=== PATIENT | male | born 1995 | race Hispanic/Latino ===

== ENCOUNTER 2021-08-21 18:14 | Emergency (ER) | payer OTHER, SELFPAY ==
[2021-08-21 18:25] VITALS: BP 146/84; PULSE 67; RESP 18; TEMP 36.1; O2SAT 100
--- NOTE | 2021-08-21 18:38 | ED.SKABFB ---
HPI - Skin/Abscess/Foreign Bdy General Chief complaint: Extremity Injury, Upper Stated complaint: Finger Pain Time Seen by Provider: 08/21/21 18:34 Source: patient and RN notes reviewed Mode of arrival: ambulatory Limitations: no limitations History of Present Illness HPI narrative: 25-year-old male presents to the [facility] with right pointer finger with redness around the nail. No fluctuant area. Area is mildly swollen, tender to touch with erythema and warm. States he was poked underneath the nail while doing the dishes last night. Patient also bites his nails Full range of motion noted. Capillary refill under 2 seconds Related Data Allergies Allergy/AdvReac Type Severity Reaction Status Date / Time No Known Allergies Allergy Unverified 08/21/21 18:22 Review of Systems Review of Systems: All systems reviewed & are unremarkable except as noted in HPI and below Constitutional: Constitutional: Reports no additional constitutional complaints Eyes: Eyes: Reports no additional eye complaints ENT: Reports system reviewed and no additional complaints, except as documented Cardiovascular: Cardiovascular: Reports no additional cardiovascular complaints Respiratory: Respiratory: Reports no additional respiratory complaints Integumentary/Breasts: Skin/Breast: Reports as per HPI and Reports erythema (Tip of right pointer finger without fluctuance) Neurologic: Reports system reviewed and no additional complaints, except as documented Psychiatric: Psychiatric: Reports no additional psychiatric complaints Allergic/Immunologic: Allergic/Immunologic: Reports no additional allergic/immunologic complaints PMFSH Past Medical History Medical History (Updated 08/21/21 @ 18:43 by Maryann Keen) No significant medical problems Surgical History Surgical History (Updated 08/21/21 @ 18:40 by Maryann Keen) No significant past surgical history Social History Social History (Updated 08/21/21 @ 18:40 by Maryann Keen) 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 There is no relevant family history pertinent to the patient complaint. Exam Const: General: healthy appearing, no acute distress and alert Nutritional Appearance: well nourished Orientation/consciousness: patient oriented x3 Limitations: no limitations HENMT: Head: normal to inspection Eyes: Pupils: Equal, round and reactive pupils present Neck: Neck: normal visual inspection and no lymphadenopathy Chest: Chest palpation & inspection: normal inspection of the chest Resp: Effort & Inspection: normal respiratory effort Cardio: Rate: regular rate Skin: Other: Redness around the nail right pointer finger. No fluctuance. Increased warmth. Capillary refill under 2 seconds. Neuro: General: patient oriented x3, moves all extremities, no meningeal signs and no focal motor deficits Speech: normal speech Gait exam (Neuro): Normal gait present Extrem: General: normal to inspection Psych: Appearance: grossly normal and well kempt Mental Status: mental status grossly normal Affect: normal affect Attitude: cooperative Thought content: Yes Normal thought content present Course Course Emergency Course: Discharge instructions reviewed with patient, as well as provided in writing per nursing staff. The instructions also include specific and strict return/GO TO THE ER as well as f/u information. All questions have been answered, and the patient deny any further questions with discharge and discharge plan. Vital Signs Vital signs: Vital Signs Temperature 97.0 F L 08/21/21 18:25 Pulse Rate 67 08/21/21 18:25 Respiratory Rate 18 08/21/21 18:25 Blood Pressure 146/84 H 08/21/21 18:25 Pulse Oximetry 100 08/21/21 18:25
== END 2021-08-21 18:47 | disposition home or self-care (01) ==
PROVIDERS: Emergency Provider Nurse Practitioner
DX: L03.011 Cellulitis of right finger (principal)
CPT/HCPCS: 99213; G0463